=== PATIENT | male | born 1965 | race Caucasian/White ===

== ENCOUNTER 2021-06-22 11:42 | Emergency (ER) | payer OTHER ==
[2021-06-22 12:07] LABS: BASOPHIL 0.3 % (0-2); EOSINOPHIL 0 % (0-5); HCT 44.1 % (42.0-52.0); HGB 14.9 g/dl (13.2-18.0); LYMPHOCYTE 9.6 % (15-48); MCH 29.4 pg (25.0-31.0); MCHC 33.8 g/dL (32.0-36.0); MONOCYTE 4.1 % (0-12); MPV 9.8 fL (6.0-9.5); NEUTROPHIL 83.7 % (41-80); NRBC 0; PLT 289 K/uL (150-400); RBC 5.07 M/uL (4.70-6.00); RDW 13.9 % (11.5-14.0); WBC 6.6 K/uL (4.0-10.5)
[2021-06-22 12:36] LABS: ALBUMIN 3.1 g/dL (3.4-5.0); BILIRUBIN - TOTAL 0.7 mg/dL (0.2-1.0); BUN/CREAT RATIO (CALC) 28.1 RATIO; CREATININE 0.89 mg/dL (0.67-1.17); GLOBULIN (CALCULATION) 4.2 g/dL; POTASSIUM 4.2 mmol/L (3.5-5.1); TOTAL PROTEIN 7.3 g/dL (6.4-8.2)
== END 2021-06-22 18:28 | disposition other institution (70) ==
LOC: FER 11:42
PROVIDERS: Emergency Medicine
DX: U07.1 COVID-19 (principal); J12.82 Pneumonia due to coronavirus disease 2019; J96.01 Acute respiratory failure with hypoxia; I10 Essential (primary) hypertension
CPT/HCPCS: 36415; 36600; 71045; 71275; 80053; 82803; 83605; 84484; 85025; 85379; 93005; C9399; J1100; J7050; Q9967